=== PATIENT | male | born 1965 | race American Indian/Alaskan Native ===

== ENCOUNTER 2019-01-28 10:37 | Outpatient (CLI) | payer OTHER ==
--- NOTE | 2019-01-28 17:14 | Magnetic Resonance Report ---
MRI LUMBAR SPINE WITHOUT CONTRAST INDICATION / CLINICAL INFORMATION: M51.26 OTHER INTERVERTEBRAL DISC DISPLACEMENT LUMBAR REGION. TECHNIQUE: Multisequence, multiplanar images of the lumbar spine were obtained. COMPARISON: None available. FINDINGS: ALIGNMENT: Normal alignment is maintained throughout the lumbar region. VERTEBRAE:Bone marrow edema signal intensity is observed at inferior endplate L4 and superior endplat e L5 anteriorly. These are a Modic type I endplate changes which may be a reactive degenerative ramos e. Lack of increased signal intensity within the L4-5 discs makes discitis and osteomyelitis unlikely . Otherwise normal bone marrow signal intensity is maintained throughout. DISC MORPHOLOGY: Mild disc desiccation is noted at the L4-5 level. Disc height and disc signal intens ity are normally maintained elsewhere. VISUALIZED SPINAL CORD: Distal thoracic spinal cord, conus and nerve roots of the cauda equina all rea ve an unremarkable appearance. Conus terminates at about the level of the mid L1 vertebrae. NLHLN-GR-GILSU ANALYSIS: L1-2: No significant abnormality. L2-3: No significant abnormality. L3-4: No significant abnormality. L4-5: Disc desiccation is noted. Type I endplate changes are seen at the adjacent vertebral bodies. A small high signal annular fissure is present between the 6 and 5:00 position. There is no associated disc protrusion. Central spinal canal is adequately maintained. There is no indication of significan t foraminal encroachment. L5-S1: Bilateral facet arthropathy is noted. Central spinal canal and neuroforamina are adequately ma intained. PARASPINAL SOFT TISSUES: Evaluation of the paraspinous soft tissues reveals no definite abnormalities . IMPRESSION: 1. Findings indicate probable disc desiccation at L4-5 with reactive changes at the adjacent endplate s. 2. No indication of disc herniation, central canal stenosis or foraminal impingement. Signer Name: Ishan Cook MD Signed: 01/28/2019 5:10 PM Workstation Name: [id number]
== END 2019-01-28 10:38 | disposition home or self-care (01) ==
LOC: MRI 10:37
PROVIDERS: ATTEND Physical Medicine & Rehabilitation
DX: M48.061 Spinal stenosis, lumbar region without neurogenic claudication (principal); M51.26 Other intervertebral disc displacement, lumbar region
CPT/HCPCS: 72148